=== PATIENT | female | born 1980 | race Caucasian/White ===

== ENCOUNTER 2019-10-26 15:16 | Emergency (ER) | payer OTHER, SELFPAY ==
[2019-10-26 15:22] VITALS: BP 161/91; PULSE 100; RESP 18; TEMP 36.6; O2SAT 100
--- NOTE | 2019-10-26 15:37 | ED.ARRPALP ---
HPI - Arrhythmia/Palpitations General Chief Complaint: Arrhythmia/Palpitations <Mook Son PA-C - Last Filed: 10/26/19 17:29> Stated Complaint: palpitations <Mook Son PA-C - Last Filed: 10/26/19 17:29> Time Seen by Provider: 10/26/19 15:27 <Mook Son PA-C - Last Filed: 10/26/19 17:29> Source: patient <Mook Son PA-C - Last Filed: 10/26/19 17:29> Mode of arrival: ambulatory <Mook Son PA-C - Last Filed: 10/26/19 17:29> Limitations: no limitations <Mook Son PA-C - Last Filed: 10/26/19 17:29> History of Present Illness HPI narrative: Patient is a 39-year-old female who presents to emergency department for evaluation of anxiety and palpitations over the last week patient was seen today and had negative COVID test and presents noting that she had had some rhinorrhea congestion and mild cough over the last week which she thought may be related to her vaping patient on arrival to emergency department denies any pain denies vomiting diarrhea or similar occurrence and is otherwise resting comfortably in no distress upon arrival <Mook Son PA-C - Last Filed: 10/26/19 17:29> Related Data Allergies/Adverse Reactions: Allergies Allergy/AdvReac Type Severity Reaction Status Date / Time No Known Allergies Allergy Unverified 10/26/19 15:27 <Mook Son PA-C - Last Filed: 10/26/19 17:29> Review of Systems Review of Systems: All systems reviewed & are unremarkable except as noted in HPI and below <Mook Son PA-C - Last Filed: 10/26/19 17:29> PMFSH Past Medical History Medical History: Medical History Hypothyroidism <Mook Son PA-C - Last Filed: 10/26/19 17:29> Social History Social History: Social History (Updated 10/26/19 @ 15:41 by Mook Son PA-C) Tobacco type: e-cigarettes/vaping Gender identity (if verbalized by the patient): Female <Mook Son PA-C - Last Filed: 08/17/20 17:29> Exam Narrative: Exam Narrative: GENERAL: Well-appearing, well-nourished, and in no acute distress. HEAD: Normocephalic, atraumatic. EYES: PERRLA and EOMI. ENT: Nares clear, no rhinorrhea or epistaxis. Mucous membranes moist. CHEST: Clear to auscultation. No respiratory distress. No wheezes rales or rhonchi HEART: Regular rate and rhythm. No murmur heard. Normal peripheral pulses. EXTREMITIES: Normal range of motion. No edema. SKIN: Warm, dry, no rash. NEURO: No focal deficits. Alert and oriented x3. PSYCH: Normal mood and affect. <YANE Abarca Last Filed: 10/26/19 17:29> Course Course Emergency Course: Patient resting comfortably in the room in no distress aware of case findings treatment plan and diagnosis agreeing to follow-up as directed or to return if symptoms worsen or concerns <YANE Abarca Last Filed: 10/26/19 17:29> Vital Signs Vital signs: Vital Signs Temperature 97.8 F 10/26/19 15:22 Pulse Rate 100 10/26/19 15:22 Respiratory Rate 18 10/26/19 15:22 Blood Pressure 161/91 H 10/26/19 15:22 Pulse Oximetry 100 10/26/19 15:22 Temperature 97.8 F 10/26/19 15:22 Pulse Rate 74 10/26/19 17:39 Respiratory Rate 16 10/26/19 17:39 Blood Pressure 100/57 L 10/26/19 17:39 Pulse Oximetry 98 10/26/19 17:39 <YANE Abarca Last Filed: 10/26/19 17:29> Vital Signs Temperature 97.8 F 10/26/19 15:22 Pulse Rate 100 10/26/19 15:22 Respiratory Rate 18 10/26/19 15:22 Blood Pressure 161/91 H 10/26/19 15:22 Pulse Oximetry 100 10/26/19 15:22 Temperature 97.8 F 10/26/19 15:22 Pulse Rate 74 10/26/19 17:39 Respiratory Rate 16 10/26/19 17:39 Blood Pressure 100/57 L 08/17/20 17:39 Pulse Oximetry 98 08/17/20 17:39 <Corin Barboza MD - Last Filed: 10/26/19 18:50> MDM - Arrhythmia/Palpitations MDM Narrative Medical decis
--- NOTE | 2019-10-26 15:39 | ECG_ITS ---
Measurements Intervals [place] Rate: 96 P: 75 OH: 141 QRS: 83 QRSD: 106 T: 59 QT: 370 QTc: 468 Interpretive Statements SINUS RHYTHM BASELINE ARTIFACT- V3 NORMAL ECG Electronically Signed On 10-26-2019 16:06:42 CDT by Mervin Hernandez D.O.
[2019-10-26 15:55] LABS: Basophils Percent Auto 0.2 % (0.2-1.2); Eosinophils Absolute Auto 0.1 K/mm3 (0-0.3); Eosinophils Percent Auto 0.8 % (0-4.4); Hemoglobin 14.9 g/dL (12.0-15.0); Immature Granulocyte Absolute 0.03 K/mm3 (0.00-0.031); Immature Granulocyte Percent A 0.3 % (0-0.5); Lymphocytes Absolute Auto 1.51 K/mm3 (0.9-3.2); Lymphocytes Percent Auto 15.8 % (18.3-44.2); Mean Corpuscular HGB Conc 33.9 g/dl (32-36); Mean Corpuscular Volume 91.5 fl (80-100); Mean Platelet Volume 10.4 fl (7.4-10.4); Monocytes Absolute Auto 0.6 K/mm3 (0.1-0.6); Monocytes Percent Auto 5.8 % (2.6-8.5); Neutrophils Absolute Auto 7.4 K/mm3 (1.3-6.7); Neutrophils Percent Auto 77.1 % (45.5-73.1); Platelet Count Result 252 k/mm3 (150-375); Red Blood Count 4.81 M/mm3 (4.2-5.4); Red Cell Distribution Width 12.5 % (11.5-14.5); White Blood Count 9.6 K/mm3 (4.5-10.0)
[2019-10-26 16:07] LABS: Alanine Aminotransferase 8 U/L (4-35); Albumin Level 4.8 g/dL (3.5-5.1); Alkaline Phosphatase 55 U/L (38-126); Anion Gap 7 mmol/L (8-16); Aspartate Amino Transferase 19 U/L (14-36); Bilirubin,Total 0.5 mg/dL (0.2-1.3); Blood Urea Nitrogen 15 mg/dL (7-17); Calcium 9.3 mg/dL (8.4-10.2); Carbon Dioxide 27 mmol/L (22-30); Chloride 103 mmol/L (98-107); Estimated CRCL calculation 99 ml/min; Estimated Glomerular Filt Rate > 60; Glucose 91 mg/dL (65-105); Potassium 4.3 mmol/L (3.4-5.0); Sodium 137 mmol/L (137-145)
[2019-10-26 16:20] LABS: Amphetamine Screen Urine Negative (Negative); Barbiturate Screen Urine Negative (Negative); Benzodiazepines Screen Urine Negative (Negative); Cannabinoid Screen Urine Negative (Negative); Cocaine Screen Urine Negative (Negative); Methadone Screen Urine Negative (Negative); Opiate Screen Urine Negative (Negative); Phencyclidine Screen Urine Negative (Negative)
[2019-10-26 16:47] VITALS: BP 114/56; PULSE 74; RESP 20; O2SAT 98
[2019-10-26 16:55] LABS: Add Urine Microscopic? NO; Appearance Urine Clear (Clear); Bilirubin Urine Negative (Negative); Blood Urine Negative (Negative); Color Urine Colorless (Yellow); Glucose Urine UA Negative (Negative); Ketones Urine Negative (Negative); Leukocyte Esterase Ur Negative LEU/UL (Negative); Nitrate Urine Negative (Negative); Protein Urine Negative (Negative); Specific Grav Ur 1.005 (1.001-1.035); Urobilinogen Urine Negative mg/dL (<2.0)
[2019-10-26 17:23] LABS: Thyroid Stimulating Hormone Reflex 0.877 uIU/mL (0.465-4.68)
[2019-10-26 17:39] VITALS: BP 100/57; PULSE 74; RESP 16; O2SAT 98
== END 2019-10-26 17:40 | disposition home or self-care (01) ==
PROVIDERS: Emergency Medicine Emergency Medical Services; Emergency Provider Emergency Medicine
DX: R00.2 Palpitations (principal); E03.9 Hypothyroidism, unspecified
CPT/HCPCS: 36415; 80053; 80307; 81003; 81025; 84443; 85025; 93005; 99284

== ENCOUNTER 2020-02-06 15:08 | Emergency (ER) | payer OTHER, SELFPAY ==
[2020-02-06 15:16] VITALS: BP 103/51; PULSE 65; RESP 16; TEMP 37.1; O2SAT 99
--- NOTE | 2020-02-06 15:34 | ED.GENADULT ---
HPI - General Adult General Chief complaint: Ear Stated complaint: ear pain Source: patient Mode of arrival: ambulatory Limitations: no limitations History of Present Illness HPI narrative: Patient is a 40-year-old female who presents complaining of bilateral ear pain and itchiness to bilateral ears. She reports symptoms x2 days. She also reports congestion and sinus pressure. She reports cough x2 days. She denies fever or shortness of breath. She denies sore throat or other complaints. Patient denies taking [id number] medications at this time. Patient also reports that she is scheduled for Covid testing on Saturday at [facility]. 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 MD complaint: Ear pain Related Data Home Medications Medication Instructions Recorded Confirmed clonazepam 0.5 mg PO DAILY 02/06/20 02/06/20 levothyroxine 75 mcg PO DAILY 02/06/20 02/06/20 Allergies Allergy/AdvReac Type Severity Reaction Status Date / Time No Known Allergies Allergy Verified 02/06/20 15:26 Review of Systems Review of Systems: Narrative: CONSTITUTIONAL: Denies fever, chills, or sweats. EYES: Denies visual changes, redness, or discharge. ENT: Denies rhinorrhea, reports congestion and bilateral otalgia. CARDIOVASCULAR: Denies chest pain, palpitations, or edema. RESPIRATORY: Reports cough, denies dyspnea. GASTROINTESTINAL: Denies abdominal pain, nausea, vomiting, or diarrhea. GENITOURINARY: Denies dysuria or hematuria. SKIN: Denies rash or itching. MUSCULOSKELETAL: Denies back pain, joint pain, or myalgia. NEUROLOGIC: Denies headache, numbness, dizziness, or weakness. PSYCHIATRIC: Denies anxiety or depression. [facility] Past Medical History Medical History (Updated 02/06/20 @ 15:39 by RUDY Rodriguez) Hypothyroidism Social History Social History (Updated 02/06/20 @ 15:35 by RUDY Rodriguez) Tobacco type: e-cigarettes/vaping Substance use: never Living arrangements: with family Occupation/Education: occupation Gender identity (if verbalized by the patient): Female Exam Narrative: Exam Narrative: GENERAL: Well-appearing, well-nourished, and in no acute distress. HEAD: Normocephalic, atraumatic. EYES: No redness or drainage. Conjunctiva are normal. ENT: Mucous membranes pink and moist. Nares clear. No rhinorrhea. TMs normal bilaterally. Throat normal. Uvula midline. CHEST: No respiratory distress. Clear to auscultation. HEART: Regular rate and rhythm. EXTREMITIES: Normal range of motion. SKIN: Warm, dry, no rash. NEURO: No focal deficits. Alert and oriented x3. Gait steady. PSYCH: Normal affect. No signs of depression or anxiety. Course Vital Signs Vital signs: Vital Signs Temperature 37.1 C 02/06/20 15:16 Pulse Rate 65 02/06/20 15:16 Respiratory Rate 16 02/06/20 15:16 Blood Pressure 103/51 L 02/06/20 15:16 Pulse Oximetry 99 02/06/20 15:16 Temperature 37.1 C 02/06/20 15:16 Pulse Rate 65 02/06/20 15:16 Respiratory Rate 16 02/06/20 15:16 Blood Pressure 103/51 L 02/06/20 15:16 Pulse Oximetry 99 02/06/20 15:16 Reviewed Medical Decision Making MDM Narrative Medical decision making narrative: Patient's ears are normal bilaterally. Discussed with patient could be normal congestion or even seasonal allergies. Patient does have Covid testing scheduled for Saturday at [facility]. 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 Discussed with patient [id number] medicines for symptom relief. Patient is stable for discharge to home with outpatient follow-up as needed. Vital Signs Vital Signs: Vital Signs Temperature 37.1 C 02/06/20 15:16 Pulse Rate 65 02/06/20 15:16 Respiratory Rate 16 02/06/20 15:16 Blood Pressure 103/51 L 02/06/20 15:16 Pulse Oximetry 99 02/06/20 15:16 Temperature 37.1 C 02/06/20 15:16 Pulse Rate 65
== END 2020-02-06 15:48 | disposition home or self-care (01) ==
PROVIDERS: Emergency Provider Nurse Practitioner
DX: H92.03 Otalgia, bilateral (principal); F17.200 Nicotine dependence, unspecified, uncomplicated
CPT/HCPCS: 99211; G0463

== ENCOUNTER 2020-04-07 13:00 | Outpatient (CLI) | payer OTHER, SELFPAY ==
[2020-04-10 14:04] LABS: HSV 1 IgM Screen Negative (Negative); HSV 2 IgM Screen Negative (Negative)
== END 2020-04-07 13:01 | disposition home or self-care (01) ==
LOC: ANHLAB 13:02
PROVIDERS: PCP Family Medicine; Visit Provider Advanced Practice Midwife
DX: B00.9 Herpesviral infection, unspecified (principal)
CPT/HCPCS: 36415; 86695; 86696

== ENCOUNTER 2022-10-05 09:13 | Outpatient (CLI) | payer OTHER, SELFPAY ==
--- NOTE | ~2022-10-05 | XR_ITS ---
AP and lateral views of the sacrum/coccyx CLINICAL HISTORY: Pain FINDINGS: No fracture or dislocation seen. Joint spaces are preserved. IUD present. Soft tissues are otherwise unremarkable. IMPRESSION: No acute abnormality seen. IUD present. Reviewed, dictated and finalized at [facility].
--- NOTE | ~2022-10-05 | XR_ITS ---
Lumbosacral Spine: AP and lateral views Clinical History: Pain Findings: The normal lordotic curve is maintained. The vertebral bodies and posterior elements are i ntact. There is mild degenerative disc narrowing at L2-L3 and L4-L5. There is probable mild facet carlos nt degenerative change at L4-L5 and L5-S1. The sacroiliac joints are normally outlined. Impression: Mild spondylosis, as above. Reviewed, dictated and finalized at [facility]. Impression: Mild spondylosis, as above.
== END 2022-10-05 09:14 | disposition home or self-care (01) ==
PROVIDERS: PCP Physician Assistant; Visit Provider Nurse Practitioner Family
DX: M54.50 Low back pain, unspecified (principal); Z97.5 Presence of (intrauterine) contraceptive device; M43.06 Spondylolysis, lumbar region
CPT/HCPCS: 72100; 72220

== ENCOUNTER 2022-10-22 11:32 | Outpatient (CLI) | payer OTHER, SELFPAY ==
--- NOTE | ~2022-10-22 | MMUS_ITS ---
EXAMINATION: MM diagnostic kathi BI w ana, US breast RT limited HISTORY: Palpable right axillary lump TECHNIQUE: Additional 3-D tomosynthesis images of the breasts were performed and synthetic 2-D images were generated. CAD analysis was submitted and interpreted. High resolution Limited right breast ult rasound was performed. COMPARISON: None BREAST PARENCHYMAL COMPOSITION: BREAST PARENCHYMAL COMPOSITION: The breasts are heterogeneously dense, which may obscure small masses . FINDINGS: MAMMOGRAPHIC FINDINGS: There are no suspicious masses, calcifications or architectural distortion in either breast to sugges t malignancy. ULTRASOUND: Limited right breast ultrasound: Right axillary lymph nodes are present, all of which retain normal f atty hilum. Largest measures 1.8 x 0.8 x 0.5 cm, likely benign reactive. IMPRESSION: 1. Probable benign reactive right axillary lymph nodes, largest measuring 1.8 cm. 2. Recommend 6 month follow-up Limited right breast/axillary ultrasound BI-RADS category 3, probably benign findings. Reviewed, dictated and finalized at location [facility]. IMPRESSION: 1. Probable benign reactive right axillary lymph nodes, largest measuring 1.8 c m. 2. Recommend 6 month follow-up Limited right breast/axillary ultrasound BI-RADS category 3, probably benign findings.
== END 2022-10-22 11:33 | disposition home or self-care (01) ==
LOC: ANHIMG 11:39
PROVIDERS: PCP Physician Assistant; Visit Provider Nurse Practitioner
DX: R59.0 Localized enlarged lymph nodes (principal); R92.8 Other abnormal and inconclusive findings on diagnostic imaging of breast
CPT/HCPCS: 76642; 77062; 77066; G0279

== ENCOUNTER 2022-12-07 08:06 | Emergency (ER) | payer OTHER, SELFPAY ==
[2022-12-07 08:32] VITALS: BP 112/61; PULSE 67; RESP 16; TEMP 36.1; O2SAT 100
--- NOTE | 2022-12-07 09:03 | ED.URI ---
HPI - URI/Sore Throat General Chief Complaint: Upper Respiratory Infection Stated Complaint: throwing up,sweats,fever Time Seen by Provider: 12/07/22 08:35 Source: patient and RN notes reviewed Mode of arrival: ambulatory Limitations: no limitations History of Present Illness HPI Narrative: Patient presents today complaining of a 2 day history of chills, headache, fatigue, sore throat, congestion, sweats, nausea. She also had 2 episodes of vomiting yesterday. Currently rates her pain 6/10 and has tried no medication for symptoms prior to arrival. Both of her children are also ill with similar symptoms. Related Data Home Medications Medication Instructions Recorded Confirmed clonazepam 0.5 mg tablet 0.5 mg PO DAILY 02/06/20 02/06/20 levothyroxine 75 mcg tablet 75 mcg PO DAILY 02/06/20 02/06/20 Allergies Allergy/AdvReac Type Severity Reaction Status Date / Time No Known Allergies Allergy Verified 02/06/20 15:26 Review of Systems Review of Systems: CONSTITUTIONAL: Denies body aches, fever, chills. + chills, sweats, fatigue EYES: Denies visual changes, redness, or discharge. ENT: Denies rhinorrhea, congestion, or otalgia.+ sore throat, congestion CARDIOVASCULAR: Denies chest pain, palpitations, or edema. RESPIRATORY: Denies cough or dyspnea. GASTROINTESTINAL: Denies abdominal pain, or diarrhea.+ nausea vomiting GENITOURINARY: Denies dysuria or hematuria. SKIN: Denies rash, itching, or wounds. MUSCULOSKELETAL: Denies back pain, joint pain, or myalgia. NEUROLOGIC: Denies numbness, tingling, or weakness.+ headache PSYCH: Denies depression or anxiety. [facility] Past Medical History Medical History (Updated 12/07/22 @ 09:38 by Renetta Ziegler, [place] [employer], ) Hypothyroidism Social History Social History Tobacco type: e-cigarettes/vaping Substance use: never Living arrangements: with family Occupation/Education: occupation Gender identity (if verbalized by the patient): Female Comments At time of signature, I have reviewed and agree with nursing past medical, surgical, social and family history unless otherwise noted. Please see nursing chart for further information. There is no relevant family history pertinent to the presenting complaint Exam Narrative: GENERAL: Mildly ill-appearing, well-nourished, and in no acute distress. HEAD: Normocephalic, atraumatic. EYES: EOMI. No redness or drainage. Conjunctivae normal. ENT: Mucous membranes pink and moist. Nares congested. No rhinorrhea. TMs normal bilaterally. Throat mildly erythematous without edema or exudate. Uvula midline. NECK: Normal AROM. Supple. No lymphadenopathy. CHEST: No respiratory distress. Clear to auscultation. HEART: Regular rate and rhythm. No murmur appreciated. Normal peripheral pulses. ABDOMEN: Soft, nontender, nondistended, normal active bowel sounds. EXTREMITIES: Normal range of motion. No edema. SKIN: Warm, dry, no rash. Capillary refill normal. Normal skin turgor. NEURO: No focal deficits. Alert and oriented x3. Gait steady. PSYCH: Normal affect. No signs of depression or anxiety. Course Course Level of Care: Express Care Visit Vital Signs Vital signs: Vital Signs Temperature 96.9 F L 12/07/22 08:32 Pulse Rate 67 12/07/22 08:32 Respiratory Rate 16 12/07/22 08:32 Blood Pressure 112/61 12/07/22 08:32 Pulse Oximetry 100 12/07/22 08:32 Oxygen Delivery Room Air 12/07/22 08:32 Temperature 96.9 F L 12/07/22 08:32 Pulse Rate 67 12/07/22 08:32 Respiratory Rate 16 12/07/22 08:32 Blood Pressure 112/61 12/07/22 08:32 Pulse Oximetry 100 12/07/22 08:32 Oxygen Delivery Room Air 12/07/22 08:32 Reviewed MDM - URI/Sore Throat MDM Narrative Medical decision making narrative: Rapid strep negative. COVID-19 negative. Symptoms likely viral in etiology. No prescription medication or further testing indicated at this
== END 2022-12-07 10:00 | disposition home or self-care (01) ==
PROVIDERS: Emergency Provider Nurse Practitioner; PCP Family Medicine
DX: B34.9 Viral infection, unspecified (principal); E03.9 Hypothyroidism, unspecified; F17.219 Nicotine dependence, cigarettes, with unspecified nicotine-induced disorders
CPT/HCPCS: 87081; 87426; 87880; 99213; C9803; G0463